=== PATIENT | female | born 1985 | race African-American/Black ===

== ENCOUNTER 2016-10-25 19:50 | Emergency (ER) | payer SELFPAY ==
[~2016-10-25] VITALS: Ht 177.8 cm; Wt 111.6 kg
[2016-10-25 20:22] LABS: BILIRUBIN,URINE NEGATIVE (NEG); GLUCOSE,URINE NEGATIVE (NEG); NITRITE,URINE NEGATIVE (NEG); PH,URINE 6.5; PROTEIN,URINE NEGATIVE (NEG-TRACE); UROBILINOGEN,URINE 0.2 mg/dL (0.2 mg/dL)
[2016-10-25 20:29] LABS: BASO # 0.1 x10^3/uL (0.0-0.2); BASO % 1 % (0-3); EOS % 5 % (0-3); HEMATOCRIT 39.7 % (36.0-47.0); HEMOGLOBIN 13.1 g/dL (12.0-15.5); LYMPH # 4.1 x10^3/uL (1.0-4.8); LYMPH % 39 % (24-48); MEAN CORPUSCULAR HEMOGLOBIN 30 pg (25-35); MEAN CORPUSCULAR HGB CONC 33 g/dL (31-37); MEAN CORPUSCULAR VOLUME 91 fL (79-100); MONO % 8 % (0-9); NEUT % 48 % (31-73); PLATELET COUNT 283 x10^3/uL (140-400); RED BLOOD COUNT 4.37 x10^6/uL (3.50-5.40); WHITE BLOOD COUNT 10.7 x10^3/uL (4.0-11.0)
[2016-10-25] MEDS ORDERED: PANTOPRAZOLE IV PUSH 40 MG VIAL. IVP ONE (20:30)
[2016-10-25] MEDS ORDERED: IV NORMAL SALINE 1000ML BAG 1,000 ML IV ONE (20:30)
[2016-10-25 20:34] LABS: BACTERIA,URINE 0 /HPF (0-FEW); RBC,URINE 0 /HPF (0-2); SQUAMOUS EPITHELIAL CELL,UR FEW /LPF; WBC,URINE 0 /HPF (0-4)
--- NOTE | 2016-10-25 20:37 | PHYS DOC ---
Past Medical History Past Medical History: Asthma, Other Additional Past Medical Histor: EXCEMA Past Surgical History: , Tubal ligation Smoking: Cigarettes Alcohol Use: Rarely Drug Use: None Adult General Chief Complaint Chief Complaint: ABDOMINAL PAIN HPI HPI Patient is a 30 year old female who presents with epigastric pain and chest tightness. Pt states has had a toothache since approx 09/21. Pt states she has been taking "alot" of Motrin for the pain. Pt states approx 3-4xdaily or per pt 1600mg daily. Tonight at [facility] at 715pm. Earlier she had gone to dentist to have teeth pulled but her BP per pt was 170's over 98, so the dentist said her blood pressure was too high and pt needs to see doctor first. Pt then started having epigastric pain with chest tightness, nausea, diaphoresis and shortness of breath, currently abdominal pain 6/10 and chest tightness 3/10. Pt states she had some episodes on and off on Monday and vomited yesterday. Pt denies any blood in the vomit. pt denies diarrhea, no F/ C Review of Systems Review of Systems Constitutional: Denies fever or chills [] Eyes: Denies change in visual acuity, redness, or eye pain [] HENT: Denies nasal congestion or sore throat [] Respiratory: Denies cough yes---shortness of breath [] Cardiovascular: No additional information not addressed in HPI [] GI: yes to abdominal pain, nausea, vomiting, denies bloody stools or diarrhea [] : Denies dysuria or hematuria [] Musculoskeletal: Denies back pain or joint pain [] Integument: Denies rash or skin lesions [] Neurologic: Denies headache, focal weakness or sensory changes [] Current Medications Current Medications Current Medications Medications (Trade) Dose Ordered Sig/Chanel Start Time Stop Time Status Last Admin Dose Admin Fentanyl Citrate (Fentanyl 2ml Vial) 50 mcg 1X ONCE 10/25/16 21:00 10/25/16 21:01 DC 10/25/16 20:42 50 MCG Multi-Ingredient Mouthwash/Gargle (Gi Cocktail Single Dose) 15 ml 1X ONCE 10/25/16 22:00 10/25/16 22:01 DC 10/25/16 21:50 15 ML Pantoprazole Sodium (Protonix Vial) 40 mg 1X ONCE 10/25/16 20:30 10/25/16 20:31 DC 10/25/16 20:39 40 MG Sodium Chloride 1,000 ml @ 1,000 mls/hr 1X ONCE 10/25/16 20:30 10/25/16 21:29 DC 10/25/16 20:39 1,000 MLS/HR Allergies Allergies Allergies Coded Allergies Type Severity Reaction Last Updated Verified No Known Drug Allergies 07/13/13 No Physical Exam Physical Exam Constitutional: Well developed, well nourished, no acute distress, non-toxic appearance. [] HENT: Normocephalic, atraumatic, bilateral external ears normal, oropharynx moist, no oral exudates, nose normal. [] Eyes: PERRL, EOMI, conjunctiva normal, no discharge. [] Neck: Normal range of motion, no tenderness, supple, no stridor. [] Cardiovascular:Heart rate regular rhythm, no murmur [] Lungs & Thorax: Bilateral breath sounds clear to auscultation [] Abdomen: Bowel sounds normal, soft, moderate epigastric and RUQ tenderness, no masses, no pulsatile masses. no guarding and no rebound[] Skin: Warm, dry, no erythema, no rash. [] Back: No tenderness, no CVA tenderness. [] Extremities: No tenderness, no cyanosis, no clubbing, ROM intact, no edema. [] Neurologic: Alert and oriented X 3, normal motor function, normal sensory function, no focal deficits noted. [] Psychologic: Affect normal, judgement normal, mood normal. [] Current Patient Data Vital Signs Vital Signs Date Time Temp Pulse Resp B/P (MAP) Pulse Ox O2 Delivery O2 Flow Rate FiO2 10/25/16 22:30 77 157/91 (113) 99 Room Air 10/25/16 20:02 98.4 18 98.4 Lab Values Laboratory Tests Test 10/25/16 19:09 10/25/16 19:58 10/25/16 20:20 10/25/16 21:56 POC Urine HCG, Qualitative Hcg negative (Negative) Urine Collection Type Unknown Urine Color Yellow Urine Clarity Clear Urine pH 6.5 Urine Specific [place] 1.015 Urine Protein Negative mg/dL (NEG-TRACE) Urine Glucose (UA) Negative mg/dL (NEG) Urine Ketones (Stick) Negative mg/dL (NEG) Urine Blood Negative (NEG) Urine Nitrite Negative (NEG) Urine Bilirubin Negative (NEG) Urine Urobilinogen Dipstick 0.2 mg/dL (0.2 mg/dL) Urine Leukocyte Esterase Small (NEG) Urine RBC 0 /HPF (0-2) Urine WBC 0 /HPF (0-4) Urine Squamous Epithelial Cells Few /LPF Urine Bacteria 0 /HPF (0-FEW) Urine Mucus Slight /LPF White Blood Count 10.7 x10^3/uL (4.0-11.0) Red Blood Count 4.37 x10^6/uL (3.50-5.40) Hemoglobin 13.1 g/dL (12.0-15.5) Hematocrit 39.7 % (36.0-47.0) Mean Corpuscular Volume 91 fL (79-100) Mean Corpuscular Hemoglobin 30 pg (25-35) Mean Corpuscular Hemoglobin Concent 33 g/dL (31-37) Red Cell Distribution Width 14.0 % (11.5-14.5) Platelet Count 283 x10^3/uL (140-400) Neutrophils (%) (Auto) 48 % (31-73) Lymphocytes (%) (Auto) 39 % (24-48) Monocytes (%) (Auto) 8 % (0-9) Eosinophils (%) (Auto) 5 % (0-3) H Basophils (%) (Auto) 1 % (0-3) Neutrophils # (Auto) 5.1 x10^3uL (1.8-7.7) Lymphocytes # (Auto) 4.1 x10^3/uL (1.0-4.8) Monocytes # (Auto) 0.8 x10^3/uL (0.0-1.1) Eosinophils # (Auto) 0.5 x10^3/uL (0.0-0.7) Basophils # (Auto) 0.1 x10^3/uL (0.0-0.2) D-Dimer (Chelo) 0.38 ug/mlFEU (0.00-0.50) Stool Occult Blood Negative (NEG) Sodium Level 141 mmol/L (136-145) Potassium Level 4.0 mmol/L (3.5-5.1) Chloride Level 106 mmol/L (98-107) Carbon Dioxide Level 30 mmol/L (21-32) Anion Gap 5 (6-14) L Blood Urea Nitrogen 15 mg/dL (7-20) Creatinine 1.0 mg/dL (0.6-1.0) Estimated GFR (Cockcroft-Gault) 78.2 BUN/Creatinine Ratio 15 (6-20) Glucose Level 109 mg/dL (70-99) H Calcium Level 8.8 mg/dL (8.5-10.1) Magnesium Level 1.8 mg/dL (1.8-2.4) Total Bilirubin 0.3 mg/dL (0.2-1.0) Aspartate Amino Transferase (AST) 15 U/L (15-37) Alanine Aminotransferase (ALT) 28 U/L (14-59) Alkaline Phosphatase 72 U/L (46-116) Creatine Kinase 154 U/L (26-192) Creatine Kinase MB (Mass) < 0.5 ng/mL (0.0-3.6) Creatine Kinase MB Relative Index 0.3 % (0-4) Troponin I Quantitative < 0.017 ng/mL (0.000-0.055) FE-Oji-V-Type Natriuretic Peptide 79 pg/mL (0-124) Total Protein 7.4 g/dL (6.4-8.2) Albumin 3.5 g/dL (3.4-5.0) Albumin/Globulin Ratio 0.9 (1.0-1.7) L Lipase 117 U/L (73-393) POC Troponin I 0.01 ng/ml (<0.08) Laboratory Tests 10/25/16 20:20 Laboratory Tests 10/25/16 20:20 Microbiology 10/25/16 Urine Culture - Preliminary, Resulted 10/25/16 Urine Culture Result 1 (LUZ) - Preliminary, Resulted EKG EKG EKG 2005 interpreted by ER physician Sinus rhythm with flipped t wave in III and V3, nonspecific, No STEMI[] Radiology/Procedures Radiology/Procedures PATIENT: JORDANA ALMONTE ACCOUNT: [id number] : 1985 LOCATION: ER AGE: 30 SEX: F EXAM STATUS: DEP ER ORD. PHYSICIAN: ISAK FRANK MD REASON: chest pain PROCEDURE: CHEST AP ONLY Indication chest pain. A single view of the chest was obtained. No prior imaging of the chest is available. The heart and pulmonary vessels appear normal. The mediastinum appears normal. The lungs are clear. Visualized bony structures appear grossly intact. IMPRESSION: No acute or focal process seen in the chest DICTATED and SIGNED BY: QI KC MD DATE: 10/26/1606 CC: ISAK FRANK MD; NO PCP ~ [] Impressions: GASTRITIS TOOTHACHE CHEST PAIN Course & Med Decision Making Course & Med Decision Making Pertinent Labs and Imaging studies reviewed. (See chart for details) Pt no cardiac risk factors----No Family hx of CAD, and no personal cardiac risk factors Pt has been taking alot of Motrin and pain likely Gastritis and poss cholelithiasis Pt with elevated BP but asymptomatic stressed need to follow up PCP to recheck BP Pain improved with Protonix and GI cocktail EKG and labs normal repeat 90 min troponin negative Ozzy Disclaimer Ozzy Disclaimer This electronic medical record was generated, in whole or in part, using a voice recognition dictation system. Departure Departure Referrals: NO PCP (PCP) Scripts No Active Prescriptions or Reported Meds ISAK FRANK MD Oct 25, 2016 20:37
[2016-10-25 20:41] LABS: CALCIUM 8.8 mg/dL (8.5-10.1); GFR 78.2
[2016-10-25 20:46] LABS: ALBUMIN 3.5 g/dL (3.4-5.0); ALBUMIN/GLOBULIN RATIO 0.9 (1.0-1.7); MAGNESIUM 1.8 mg/dL (1.8-2.4); TOTAL BILIRUBIN 0.3 mg/dL (0.2-1.0); TOTAL PROTEIN 7.4 g/dL (6.4-8.2)
[2016-10-25 20:53] LABS: CREATINE KINASE 154 U/L (26-192)
[2016-10-25 20:54] LABS: CKMB MASS < 0.5 ng/mL (0.0-3.6)
[2016-10-25 20:56] LABS: NEG OBC FOB NEG; POS OBC FOB POS
[2016-10-25] MEDS ORDERED: fentaNYL PF VIAL 100 MCG/2 ML VIAL IV ONE (21:00)
[2016-10-25] MEDS ORDERED: LIDO:MAALOX:DONNATAL 1:1:1 15 ML SINGLE DOSE SWSW ONE (22:00)
[2016-10-25 22:30] VITALS: BP 157/91
--- NOTE | 2016-10-26 06:23 | EKG ---
[facility] [address] [place] [address] Test Date: 2016-10-25 Test Time: 20:08:20 Pat Name: JORDANA ALMONTE Department: Room: Gender: F Disability Advocate: : 1985 Requested By: ISAK FRANK Order Number: [id number] Reading MD: Measurements Intervals [place] Rate: 77 P: 41 DC: 156 QRS: 4 QRSD: 80 T: 13 QT: 310 QTc: 352 Interpretive Statements SINUS RHYTHM LEFT ATRIAL ABNORMALITY QRS(T) CONTOUR ABNORMALITY CONSISTENT WITH ANTEROSEPTAL INFARCT AGE UNDETERMINED RI6.01 Unconfirmed report No previous ECG available for comparison
--- NOTE | 2016-10-26 09:09 | RAD ---
Indication chest pain. A single view of the chest was obtained. No prior imaging of the chest is available. The heart and pulmonary vessels appear normal. The mediastinum appears normal. The lungs are clear. Visualized bony structures appear grossly intact. IMPRESSION: No acute or focal process seen in the chest
== END 2016-10-25 22:40 | disposition home or self-care (01) ==
LOC: ER 19:50
DX: K29.70 Gastritis, unspecified, without bleeding (principal); R07.89 Other chest pain; K08.89 Other specified disorders of teeth and supporting structures; J45.909 Unspecified asthma, uncomplicated; F17.210 Nicotine dependence, cigarettes, uncomplicated; Z98.51 Tubal ligation status; Z98.890 Other specified postprocedural states
CPT/HCPCS: 36415; 71010; 80053; 81001; 81025; 82274; 82553; 83690; 83735; 83880; 84484; 85027; 85379; 87086; 93005; 96361; 96374; 96375; 99285; C9113; J3010; J7030

== ENCOUNTER 2017-03-02 15:44 | Emergency (ER) | payer BC ==
[~2017-03-02] VITALS: Ht 177.8 cm; Wt 110.2 kg
[2017-03-02] MEDS ORDERED: IV NORMAL SALINE 1000ML BAG 1,000 ML IV SCH (16:13)
[2017-03-02 16:32] LABS: BASO # 0.1 x10^3/uL (0.0-0.2); BASO % 1 % (0-3); EOS % 3 % (0-3); HEMATOCRIT 42.2 % (36.0-47.0); HEMOGLOBIN 14.1 g/dL (12.0-15.5); LYMPH # 4.3 x10^3/uL (1.0-4.8); LYMPH % 50 % (24-48); MEAN CORPUSCULAR HEMOGLOBIN 31 pg (25-35); MEAN CORPUSCULAR HGB CONC 33 g/dL (31-37); MEAN CORPUSCULAR VOLUME 91 fL (79-100); MONO % 8 % (0-9); NEUT % 38 % (31-73); PLATELET COUNT 305 x10^3/uL (140-400); RED BLOOD COUNT 4.63 x10^6/uL (3.50-5.40); WHITE BLOOD COUNT 8.6 x10^3/uL (4.0-11.0)
[2017-03-02 16:34] LABS: BILIRUBIN,URINE NEGATIVE (NEG); GLUCOSE,URINE NEGATIVE (NEG); NITRITE,URINE NEGATIVE (NEG); PH,URINE 6.5; PROTEIN,URINE NEGATIVE (NEG-TRACE)
[2017-03-02] MEDS ORDERED: LIDO:MAALOX:DONNATAL 1:1:1 15 ML SINGLE DOSE SWSW ONE (16:45)
[2017-03-02 16:46] LABS: SQUAMOUS EPITHELIAL CELL,UR MANY /LPF
[2017-03-02 16:47] LABS: BACTERIA,URINE MOD /HPF (0-FEW); RBC,URINE OCC /HPF (0-2)
[2017-03-02 16:47] LABS: CALCIUM 9.2 mg/dL (8.5-10.1); GFR 77.7; POTASSIUM 3.6 mmol/L (3.5-5.1)
[2017-03-02 16:54] LABS: ALBUMIN 3.7 g/dL (3.4-5.0); ALBUMIN/GLOBULIN RATIO 0.9 (1.0-1.7); TOTAL BILIRUBIN 0.4 mg/dL (0.2-1.0); TOTAL PROTEIN 7.7 g/dL (6.4-8.2)
--- NOTE | 2017-03-02 16:57 | PHYS DOC ---
Past Medical History Past Medical History: Asthma, Other Additional Past Medical Histor: EXCEMA Past Surgical History: , Tubal ligation Alcohol Use: Rarely Drug Use: None Adult General Chief Complaint Chief Complaint: ABDOMINAL PAIN HPI HPI 31-year-old female with a history of gastritis for which she is not currently medicated and no other significant past medical history now presents to the emergency department complaining of nausea and intermittent diarrhea 1 week. Patient has stool which is sometimes hard and sometimes soft but now is baseline for her. She does not have active vomiting but she does have some nausea. Patient denies possibility of . She has mild epigastric discomfort similar to what she spirits previously when she was diagnosed with gastritis. Patient has not heavy drinker she has been a smoker and just quit several days ago. Fevers chills sweats or shaking chills. Pain is not worse with movement. Denies black or bloody stool. No history of abdominal surgeries or chronic abdominal problems Review of Systems Review of Systems Constitutional: Denies fever or chills [] Eyes: Denies change in visual acuity, redness, or eye pain [] HENT: Denies nasal congestion or sore throat [] Respiratory: Denies cough or shortness of breath [] Cardiovascular: No additional information not addressed in HPI [] GI: As above : Denies dysuria or hematuria [] Musculoskeletal: Denies back pain or joint pain [] Integument: Denies rash or skin lesions [] Neurologic: Denies headache, focal weakness or sensory changes [] Endocrine: Denies polyuria or polydipsia [] Current Medications Current Medications Current Medications Medications (Trade) Dose Ordered Sig/[facility] Start Time Stop Time Status Last Admin Dose Admin Multi-Ingredient Mouthwash/Gargle (Gi Cocktail Single Dose) 15 ml 1X ONCE 03/02/17 16:45 03/02/17 16:46 DC 03/02/17 16:46 15 ML Sodium Chloride 1,000 ml @ 999 mls/hr Q1H1M 03/02/17 16:13 03/02/17 17:13 03/02/17 16:45 999 MLS/HR Allergies Allergies Allergies Coded Allergies Type Severity Reaction Last Updated Verified No Known Drug Allergies 07/13/13 No Physical Exam Physical Exam Constitutional: Well developed, well nourished, no acute distress, non-toxic appearance. [] HENT: Normocephalic, atraumatic, bilateral external ears normal, oropharynx moist, no oral exudates, nose normal. [] Eyes: PERRLA, EOMI, conjunctiva normal, no discharge. [] Neck: Normal range of motion, no tenderness, supple, no stridor. [] Cardiovascular:Heart rate regular rhythm, no murmur [] Lungs & Thorax: Bilateral breath sounds clear to auscultation [] Abdomen: Bowel sounds normal, soft, minimal epigastric tenderness, no masses, no pulsatile masses. [] Skin: Warm, dry, no erythema, no rash. [] Back: No tenderness, no CVA tenderness. [] Extremities: No tenderness, no cyanosis, no clubbing, ROM intact, no edema. [] Neurologic: Alert and oriented X 3, normal motor function, no focal deficits noted. [] Psychologic: Affect normal, judgement normal, mood normal. [] Current Patient Data Vital Signs Vital Signs Date Time Temp Pulse Resp B/P (MAP) Pulse Ox O2 Delivery O2 Flow Rate FiO2 03/02/17 15:49 98.1 58 18 131/77 (95) 97 Room Air 98.1 Lab Values Laboratory Tests Test 03/02/17 15:49 03/02/17 16:02 03/02/17 16:05 Urine Collection Type Void Urine Color Yellow Urine Clarity Clear Urine pH 6.5 Urine Specific [place] 1.025 Urine Protein Negative mg/dL (NEG-TRACE) Urine Glucose (UA) Negative mg/dL (NEG) Urine Ketones (Stick) Negative mg/dL (NEG) Urine Blood Negative (NEG) Urine Nitrite Negative (NEG) Urine Bilirubin Negative (NEG) Urine Urobilinogen Dipstick 1.0 mg/dL (0.2 mg/dL) Urine Leukocyte Esterase Small (NEG) Urine RBC Occ /HPF (0-2) Urine WBC 5-10 /HPF (0-4) Urine Squamous Epithelial Cells Many /LPF Urine Bacteria Mod /HPF (0-FEW) Urine Mucus Mod /LPF White Blood Count 8.6 x10^3/uL (4.0-11.0) Red Blood Count 4.63 x10^6/uL (3.50-5.40) Hemoglobin 14.1 g/dL (12.0-15.5) Hematocrit 42.2 % (36.0-47.0) Mean Corpuscular Volume 91 fL (79-100) Mean Corpuscular Hemoglobin 31 pg (25-35) Mean Corpuscular Hemoglobin Concent 33 g/dL (31-37) Red Cell Distribution Width 14.0 % (11.5-14.5) Platelet Count 305 x10^3/uL (140-400) Neutrophils (%) (Auto) 38 % (31-73) Lymphocytes (%) (Auto) 50 % (24-48) H Monocytes (%) (Auto) 8 % (0-9) Eosinophils (%) (Auto) 3 % (0-3) Basophils (%) (Auto) 1 % (0-3) Neutrophils # (Auto) 3.3 x10^3uL (1.8-7.7) Lymphocytes # (Auto) 4.3 x10^3/uL (1.0-4.8) Monocytes # (Auto) 0.7 x10^3/uL (0.0-1.1) Eosinophils # (Auto) 0.3 x10^3/uL (0.0-0.7) Basophils # (Auto) 0.1 x10^3/uL (0.0-0.2) Sodium Level 139 mmol/L (136-145) Potassium Level 3.6 mmol/L (3.5-5.1) Chloride Level 103 mmol/L (98-107) Carbon Dioxide Level 28 mmol/L (21-32) Anion Gap 8 (6-14) Blood Urea Nitrogen 14 mg/dL (7-20) Creatinine 1.0 mg/dL (0.6-1.0) Estimated GFR (Cockcroft-Gault) 77.7 BUN/Creatinine Ratio 14 (6-20) Glucose Level 103 mg/dL (70-99) H Calcium Level 9.2 mg/dL (8.5-10.1) Total Bilirubin Pending Aspartate Amino Transferase (AST) Pending Alanine Aminotransferase (ALT) Pending Alkaline Phosphatase Pending Total Protein Pending Albumin Pending Albumin/Globulin Ratio Pending Lipase Pending POC Urine HCG, Qualitative Hcg negative (Negative) Laboratory Tests 03/02/17 16:02 Laboratory Tests 03/02/17 16:02 EKG EKG [] Radiology/Procedures Radiology/Procedures [] Course & Med Decision Making Course & Med Decision Making Signs and symptoms consistent with suspected gastritis in a patient with a history of the same area and she has minimal epigastric tenderness and is very well-appearing. Vital signs unremarkable. IV fluids and nausea medicine administered. Full labs pending. If unremarkable anticipate outpatient follow- up with proton pump inhibitor to be taken [id number]. Patient will follow- up with PCP no further workup or treatment will be indicated today. She agrees with outpatient follow-up and strict return precautions will be given. Pertinent Labs and Imaging studies reviewed. (See chart for details) [] Dragon Disclaimer Dragon Disclaimer This electronic medical record was generated, in whole or in part, using a voice recognition dictation system. Departure Departure Impression: Primary Impression: Epigastric pain Additional Impression: Gastritis Disposition: 01 HOME, SELF-CARE Condition: STABLE Referrals: NO PCP (PCP) Scripts No Active Prescriptions or Reported Meds Problem Qualifiers CARL ESQUIVEL MD Mar 02, 2017 16:57
[2017-03-02] MEDS ORDERED: ONDANSETRON PF 4 MG/2 ML VIAL. IV ONE (17:00)
[2017-03-02 20:02] VITALS: BP 123/79
--- NOTE | 2017-03-03 06:24 | EKG ---
[facility] [address] [place] [address] Test Date: 2017-03-02 Test Time: 17:24:03 Pat Name: JORDANA ALMONTE Department: Room: Gender: F Leader Tier: : 1985 Requested By: CARL ESQUIVEL Order Number: [id number] Reading MD: Lia Posadas Measurements Intervals [place] Rate: 60 P: 27 SD: 168 QRS: 8 QRSD: 80 T: -2 QT: 380 QTc: 380 Interpretive Statements SINUS RHYTHM QRS(T) CONTOUR ABNORMALITY CONSISTENT WITH SEPTAL INFARCT AGE UNDETERMINED ABNORMAL ECG Electronically Signed On 03-05-2017 16:08:02 CDT by Lia Posadas
== END 2017-03-02 20:02 | disposition home or self-care (01) ==
LOC: ER 15:44
DX: K29.70 Gastritis, unspecified, without bleeding (principal); J45.909 Unspecified asthma, uncomplicated; Z98.51 Tubal ligation status
CPT/HCPCS: 36415; 80053; 81001; 81025; 83690; 84484; 85025; 93005; 96361; 96374; 99285; J2405; J7030